=== PATIENT | male | born 1960 | race Two or more races ===

== ENCOUNTER 2020-11-23 08:12 | Emergency (ER) | payer OTHER ==
[~2020-11-23] VITALS: Ht 170.2 cm; Wt 64.4 kg
--- NOTE | 2020-11-23 08:12 | NUR ---
PT FRITZ FROM STREETS ACCOMPANIED BY PD. PER AIRCRAFT QUALITY CONTROL INSPECTOR REPORT PATIENT WAS WAIVING A METAL PIPE AND THREATENING AN INDIVIDUAL. WHEN BEING APPREHENDED PT BEGAN TO RAN INTO TRAFFIC. 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 PT WILL BE PLACED ON A 5150 HOLD FOR DTO. PLACED ON ROOM. AWAITING MD FABIAN.
--- NOTE | 2020-11-23 08:14 | NUR ---
AT BEDSIDE FOR EVAL.
[2020-11-23] MEDS ORDERED: LORAZEPAM 1 MG TABLET ONE (08:37)
[2020-11-23] MEDS: LORAZEPAM 1 MG TABLET PO ONE (08:41)
[2020-11-23 08:45] LABS: BASOPHILS % (AUTO) 0.5 % (0.0-2.0); EOSINOPHILS % (AUTO) 1.6 % (0.0-6.0); HEMATOCRIT 37 % (39-51); HEMOGLOBIN 12.6 g/dL (13.5-17.5); LYMPHOCYTES # (AUTO) 1.8 K/uL (0.8-4.8); LYMPHOCYTES % (AUTO) 21.9 % (20.0-44.0); MEAN CORPUSCULAR HGB CONC 34 g/dl (31.0-36.0); MEAN CORPUSCULAR VOLUME 92 fL (80-96); MONOCYTES # (AUTO) 0.6 K/uL (0.1-1.30); MONOCYTES % (AUTO) 7.1 % (2.0-12.0); NEUTROPHILS # (AUTO) 5.7 K/uL (1.8-8.9); NEUTROPHILS % (AUTO) 68.9 % (43.0-81.0); PLATELET COUNT (AUTO) 432 K/uL (150-450); RED BLOOD CELL COUNT(AUTO) 4.05 MIL/uL (4.5-6.0); WHITE BLOOD COUNT (AUTO) 8.3 K/uL (4.3-11.0)
[2020-11-23 09:04] LABS: ALANINE AMINOTRANSFERASE 41 U/L (12-78); ALBUMIN 3.7 g/dL (3.4-5.0); ALCOHOL, BLOOD < 3 mg/dL (0-0); ALKALINE PHOSPHATASE 106 U/L (46-116); ASPARTATE AMINOTRANSFERASE 31 U/L (15-37); BILIRUBIN,DIRECT 0.1 mg/dL (0.0-0.2); BILIRUBIN,TOTAL 0.3 mg/dL (0.2-1.0); CALCIUM, SERUM 8.4 mg/dL (8.5-10.1); CARBON DIOXIDE 27 mmol/L (21-32); CHLORIDE 106 mmol/L (98-107); GLUCOSE 109 mg/dL (74-106); POTASSIUM 3.9 mmol/L (3.5-5.1); SODIUM SERUM 141 mmol/L (136-145); TOTAL PROTEIN, SERUM 7.1 g/dL (6.4-8.2)
[2020-11-23 09:11] LABS: ACETAMINOPHEN < 10 ug/ml (10-30)
[2020-11-23 09:19] LABS: UREA NITROGEN, BLOOD 28 mg/dL (7-18)
--- NOTE | 2020-11-23 09:29 | NUR ---
PT IS STILL YELLING, VERBALLY ABUSIVE TO STAFF. MADE AWARE. AWAITING FOR NEW ORDERS.
[2020-11-23] MEDS ORDERED: diphenhydrAMINE HCL 50 MG/ML VIAL ONE (09:31)
[2020-11-23] MEDS ORDERED: HALOPERIDOL LACTATE INJ 5 MG/ML VIAL ONE (09:31)
[2020-11-23] MEDS ORDERED: LORAZEPAM INJ 2 MG/ML VIAL ONE (09:32)
[2020-11-23 09:49] LABS: BILIRUBIN,URINE Negative (NEGATIVE); COLOR,URINE YELLOW (YELLOW); LEUKOCYTE ESTERASE ,URINE Negative (NEGATIVE); NITRITE, URINE Negative (NEGATIVE); PH,URINE 5.5 (5.0-8.0); PROTEIN,URINE Negative (NEGATIVE); UGLUCOSE Negative (NEGATIVE); UROBILINOGEN,URINE 0.2 EU/dL (0.2)
[2020-11-23] MEDS: diphenhydrAMINE HCL 50 MG/ML VIAL IM ONE (09:56)
[2020-11-23] MEDS: LORAZEPAM INJ 2 MG/ML VIAL IM ONE (09:56)
[2020-11-23] MEDS: HALOPERIDOL LACTATE INJ 5 MG/ML VIAL IM ONE (09:56)
--- NOTE | 2020-11-23 09:56 | NUR ---
ORDERED ATIVAN, BENADRYL AND HALDOL NOT GIVEN AT THIS TIME. PT IS MORE CALM, NOW COOPERATIVE W/ STAFF. URINE SAMPLE COLLECTED AND SENT. REQUESTED FOR FOOD AND WATER. PT PROVIDED W/ MEAL TRAY.
--- NOTE | 2020-11-23 12:40 | NUR ---
THE PATIENT SLEEPING IN BED. RESPONSIVE TO VERBAL STIMULI. RESPIRATION REGULAR AND UNLABORED. WILL CONTINUE TO MONITOR THE PATIENT.
--- NOTE | 2020-11-23 13:40 | NUR ---
Field Spec note: program services assistant requested for homelessness. SW attempted to interview patient at his bedside. Pt presented ungroomed. Pt was unarousable. SW was notified by RN Cyndie that the pt has been medicated. SW notified RN Cyndie that homeless resources and waiver will be filed in the patients chart. ED event staff member to follow up.
--- NOTE | 2020-11-23 19:14 | NUR ---
REC'D REPORT FROM CASSI MIX FOR REPORT
--- NOTE | 2020-11-23 19:14 | NUR ---
[facility] ICU NURSE AT BEDSIDE
--- NOTE | 2020-11-23 19:28 | NUR ---
Patient discharged to home in stable condition. Written and verbal after care instructions given. Patient verbalizes understanding of instruction.pT ambulatory with a steady gait. pT SIGNED HOMELESS WAIVER FORM AND WAS GIVEN TAP CARD
[2020-11-23 19:31] VITALS: BP 135/86
== END 2020-11-23 19:28 | disposition home or self-care (01) ==
LOC: ER 08:18
DX: F15.920 Other stimulant use, unspecified with intoxication, uncomplicated (principal); F10.10 Alcohol abuse, uncomplicated; R45.1 Restlessness and agitation; Y90.0 Blood alcohol level of less than 20 mg/100 ml; Z60.2 Problems related to living alone
CPT/HCPCS: 36415; 80048-TC; 80076-TC; 85025-TC; G0480; J1200; J1630; J2060

== ENCOUNTER 2020-12-02 14:16 | Inpatient (IN) | payer OTHER ==
[~2020-12-02] VITALS: Ht 170.2 cm; Wt 65.8 kg
--- NOTE | 2020-12-02 14:26 | NUR ---
SEEN AND EXAMINED BY .
[2020-12-02] MEDS ORDERED: OLANZAPINE 10 MG VIAL IM ONE ×2 (14:30→14:33)
[2020-12-02] MEDS ORDERED: LORAZEPAM INJ 2 MG/ML VIAL IM ONE (14:30)
[2020-12-02] MEDS ORDERED: LORAZEPAM INJ 2 MG/ML VIAL ONE (14:34)
--- NOTE | 2020-12-02 14:40 | NUR ---
Patient bibra and lapd, behavioral, running in roof tops x 2 hrs. On room air, connected tot he monitor and pulse ox. kept comfortable, will continue to monitor accordingly. Sitter at bedside for constant monitoring.
--- NOTE | 2020-12-02 14:41 | NUR ---
urine sent to lab
--- NOTE | 2020-12-02 14:41 | NUR ---
URINE SPECIMEN COLLECTED AND SENT TO LAB.
[2020-12-02 14:49] LABS: BILIRUBIN,URINE SMALL (NEGATIVE); COLOR,URINE YELLOW (YELLOW); LEUKOCYTE ESTERASE ,URINE Trace (NEGATIVE); NITRITE, URINE Negative (NEGATIVE); PH,URINE 5.5 (5.0-8.0); PROTEIN,URINE 100 mg/dl (NEGATIVE); UGLUCOSE Negative (NEGATIVE); UROBILINOGEN,URINE 0.2 EU/dL (0.2)
[2020-12-02 14:52] LABS: BACTERIA,URINE Few /HPF (None Seen); SQUAMOUS EPITHELIAL CELL,UR Few /HPF (None Seen)
[2020-12-02 14:52] LABS: BASOPHILS # (AUTO) 0.1 K/uL (0.0-0.2); BASOPHILS % (AUTO) 0.3 % (0.0-2.0); EOSINOPHILS % (AUTO) 0.3 % (0.0-6.0); HEMATOCRIT 45 % (39-51); LYMPHOCYTES # (AUTO) 1.4 K/uL (0.8-4.8); LYMPHOCYTES % (AUTO) 7.9 % (20.0-44.0); MEAN CORPUSCULAR HGB CONC 33 g/dl (31.0-36.0); MEAN CORPUSCULAR VOLUME 91 fL (80-96); MONOCYTES # (AUTO) 0.9 K/uL (0.1-1.30); MONOCYTES % (AUTO) 5.1 % (2.0-12.0); NEUTROPHILS # (AUTO) 15.5 K/uL (1.8-8.9); NEUTROPHILS % (AUTO) 86.4 % (43.0-81.0); PLATELET COUNT (AUTO) 504 K/uL (150-450); RED BLOOD CELL COUNT(AUTO) 4.98 MIL/uL (4.5-6.0); WHITE BLOOD COUNT (AUTO) 17.9 K/uL (4.3-11.0)
[2020-12-02 15:09] LABS: ALANINE AMINOTRANSFERASE 33 U/L (12-78); ALBUMIN 4.8 g/dL (3.4-5.0); ALCOHOL, BLOOD < 3 mg/dL (0-0); ALKALINE PHOSPHATASE 135 U/L (46-116); ASPARTATE AMINOTRANSFERASE 32 U/L (15-37); BILIRUBIN,DIRECT 0.1 mg/dL (0.0-0.2); BILIRUBIN,TOTAL 0.5 mg/dL (0.2-1.0); CALCIUM, SERUM 10.2 mg/dL (8.5-10.1); CARBON DIOXIDE 23 mmol/L (21-32); CHLORIDE 101 mmol/L (98-107); CREATININE 2.1 mg/dL (0.6-1.3); GLUCOSE 155 mg/dL (74-106); POTASSIUM 4.4 mmol/L (3.5-5.1); SODIUM SERUM 138 mmol/L (136-145); TOTAL PROTEIN, SERUM 9.3 g/dL (6.4-8.2); UREA NITROGEN, BLOOD 37 mg/dL (7-18)
[2020-12-02 15:12] LABS: ACETAMINOPHEN < 2 ug/ml (10-30)
[2020-12-02] MEDS ORDERED: IV NS 0.9% 1,000 ML IV ONE (17:00)
--- NOTE | 2020-12-02 17:18 | NUR ---
REPORT/CLINICALS GIVEN TO RUPESH POLK,[facility] FAXED TO [phone]
--- NOTE | 2020-12-02 19:08 | NUR ---
AWAITING AUTH FROM INSURANCE
--- NOTE | 2020-12-02 19:08 | NUR ---
PT's restraints are removed due to patient not being combative. Patient is sleeping. Somnolent. Easily arousable.
--- NOTE | 2020-12-02 19:58 | NUR ---
covid swab rapid test collected and sent to the lab
--- NOTE | 2020-12-02 20:42 | NUR ---
SPOKE TO REZA THE SHIPFITTER AND REC'D A VERBAL AUTH TO ADMIT THE PT
--- NOTE | 2020-12-02 21:15 | NUR ---
DR. YOUNG PAGED PER JENNI MENDOZA ORDER.
[2020-12-02] MEDS ORDERED: IV 1/2NS 1000 ML 1,000 ML IV PRN (23:00)
[2020-12-02] MEDS ORDERED: OLANZAPINE 10 MG VIAL IM PRN (23:00)
[2020-12-02] MEDS ORDERED: LORAZEPAM INJ 2 MG/ML VIAL IV PRN (23:00)
[2020-12-02] MEDS ORDERED: ONDANSETRON HCL/PF 4 MG/2 ML VIAL IVP PRN (23:00)
[2020-12-02] MEDS ORDERED: ZOLPIDEM TARTRATE 5 MG TABLET PO PRN (23:00)
[2020-12-02] MEDS ORDERED: ACETAMINOPHEN 325 MG TABLET PO PRN (23:00)
[2020-12-02] MEDS ORDERED: MORPHINE SULFATE INJ 2 MG/ML DISP.SYRIN IV PRN (23:00)
[2020-12-03 05:10] LABS: BASOPHILS # (AUTO) 0.1 K/uL (0.0-0.2); BASOPHILS % (AUTO) 0.7 % (0.0-2.0); EOSINOPHILS % (AUTO) 1.6 % (0.0-6.0); HEMATOCRIT 42 % (39-51); HEMOGLOBIN 14.4 g/dL (13.5-17.5); LYMPHOCYTES # (AUTO) 2.2 K/uL (0.8-4.8); LYMPHOCYTES % (AUTO) 21.4 % (20.0-44.0); MEAN CORPUSCULAR HGB CONC 34 g/dl (31.0-36.0); MEAN CORPUSCULAR VOLUME 92 fL (80-96); MONOCYTES # (AUTO) 0.8 K/uL (0.1-1.30); MONOCYTES % (AUTO) 7.5 % (2.0-12.0); NEUTROPHILS # (AUTO) 7.1 K/uL (1.8-8.9); NEUTROPHILS % (AUTO) 68.8 % (43.0-81.0); PLATELET COUNT (AUTO) 399 K/uL (150-450); RED BLOOD CELL COUNT(AUTO) 4.56 MIL/uL (4.5-6.0); WHITE BLOOD COUNT (AUTO) 10.4 K/uL (4.3-11.0)
[2020-12-03 05:26] LABS: ALANINE AMINOTRANSFERASE 28 U/L (12-78); ALBUMIN 3.7 g/dL (3.4-5.0); ALKALINE PHOSPHATASE 111 U/L (46-116); ASPARTATE AMINOTRANSFERASE 34 U/L (15-37); BILIRUBIN,TOTAL 0.6 mg/dL (0.2-1.0); CALCIUM, SERUM 8.6 mg/dL (8.5-10.1); CARBON DIOXIDE 27 mmol/L (21-32); CHLORIDE 103 mmol/L (98-107); GLUCOSE 110 mg/dL (74-106); MAGNESIUM 2.5 mg/dL (1.8-2.4); PHOSPHORUS 2.7 mg/dL (2.5-4.9); POTASSIUM 3.8 mmol/L (3.5-5.1); SODIUM SERUM 138 mmol/L (136-145); TOTAL PROTEIN, SERUM 7.4 g/dL (6.4-8.2); UREA NITROGEN, BLOOD 35 mg/dL (7-18)
[2020-12-03 05:36] LABS: CHOLESTEROL 209 mg/dL (<200); CREATINE KINASE, TOTAL 628 U/L (39-308); HDL CHOLESTEROL 80 mg/dL (40-60); LDL 113 mg/dL (0-99); THYROID STIMULATING HORMONE 0.689 uIU/mL (0.358-3.74); TRIGLYCERIDES 33 mg/dL (30-150)
--- NOTE | 2020-12-03 07:20 | NUR ---
RECEIVED REPORT FROM CASSI CARMONA FOR [employer]IG[employer]. PT ASLEEP ON BED EASILY AROUSABLE, AAOX4, NOT IN RESPIRATORY DISTRESS, V/S STABLE, KEPT RESTED AND COMFORTABLE. WILL CONTINUE TO MONITOR.
[2020-12-03] MEDS ORDERED: PANTOPRAZOLE 40 MG TABLET.DR PO ONE (07:22)
[2020-12-03] MEDS ORDERED: PANTOPRAZOLE 40 MG TABLET.DR PO SCH (07:30)
--- NOTE | 2020-12-03 08:10 | NUR ---
FOOD TRAY PROVIDED.
[2020-12-03] MEDS ORDERED: OLANZAPINE 10 MG VIAL IM ONE (09:49)
--- NOTE | 2020-12-03 10:08 | NUR ---
PT IS AGITATED, HYPERVERBAL AND RESTLESS AT BEDSIDE. GIVEN STANDING ORDER FOR [facility] IM. SEE EMAR.
--- NOTE | 2020-12-03 10:30 | NUR ---
Machine Inspector note: guest services manager requested for homelessness. Pt is a 60-year-old, male. SW met with pt at his bedside in the emergency department. Pt presented hyperverbal and verbally aggressive. Pt was waving his urinal at upon arrival. Pt appeared disheveled. Per chart, pt will be admitted to the medical floor. Pt is on a 5150 hold for DTS and DTO. SS will continue to remain available and follow up with the pt at a later time.
--- NOTE | 2020-12-03 13:42 | NUR ---
CALLED ART FOR EVAL. WILL COME IN TO ASSESS.
--- NOTE | 2020-12-03 13:45 | NUR ---
Patient discharged to home in stable condition. Written and verbal after care instructions given. Patient verbalizes understanding of instruction.
--- NOTE | 2020-12-03 13:45 | NUR ---
Seble blanchard in [facility] - 12/03/20 at 1651 by LADAN Patient discharged to home in stable condition. Written and verbal after care instructions given. Patient verbalizes understanding of instruction.
--- NOTE | 2020-12-03 14:33 | NUR ---
ART AUTOMATED WEAVER AT BEDSIDE FOR EVAL.
[2020-12-03 15:13] VITALS: BP 135/63
--- NOTE | 2020-12-03 15:13 | NUR ---
Patient discharged to home in stable condition. Written and verbal after care instructions given. Patient verbalizes understanding of instruction.
== END 2020-12-03 15:12 | disposition home or self-care (01) | DRG 469 ==
LOC: ER 14:26 → TRANSITION 23:14
PROVIDERS: ADMIT Internal Medicine; ATTEND Nurse Practitioner Acute Care
DX: N17.0 Acute kidney failure with tubular necrosis (principal); G92 Toxic encephalopathy; M62.82 Rhabdomyolysis; F29 Unspecified psychosis not due to a substance or known physiological condition; Z20.822 Contact with and (suspected) exposure to COVID-19; Z87.891 Personal history of nicotine dependence; F15.10 Other stimulant abuse, uncomplicated; D72.829 Elevated white blood cell count, unspecified; R73.9 Hyperglycemia, unspecified; Z59.0 Homelessness; R45.1 Restlessness and agitation
CPT/HCPCS: 36415; 70450-TC; 71045-TC; 80048-TC; 80053-TC; 80061-TC; 80076-TC; 81001; 82550-TC; 82553; 83735-TC; 84100-TC; 84443-TC; 84484-TC; 85025-TC; 87081-TC; C9803; G0378; G0480; J2060; J2270; J2405; J3490; J7030